=== PATIENT | female | born 1945 | race African-American/Black ===

== ENCOUNTER 2021-09-11 07:14 | Emergency (ER) | payer MEDICARE, OTHER ==
[~2021-09-11] VITALS: Ht 170.2 cm; Wt 48.0 kg
[2021-09-11 07:38] VITALS: BP 182/90
[2021-09-11] MEDS ORDERED: KETOROLAC 60MG/2ML VIAL IM ONE (08:30)
[2021-09-11] MEDS ORDERED: MORPHINE SULFATE 10 MG/ML CPJ IM ONE (08:30)
[2021-09-11] MEDS ORDERED: ONDANSETRON 4MG ODT PO ONE (08:30)
[2021-09-11] MEDS ORDERED: IBUP-2028 MT (10:38)
[2021-09-11] MEDS ORDERED: HYDR-4001 MT (10:38)
== END 2021-09-11 12:45 | disposition home or self-care (01) ==
LOC: ER 07:14
DX: S82.852A Displaced trimalleolar fracture of left lower leg, initial encounter for closed fracture (principal); I10 Essential (primary) hypertension; V49.9XXA Car occupant (driver) (passenger) injured in unspecified traffic accident, initial encounter; Y93.89 Activity, other specified; Y92.89 Other specified places as the place of occurrence of the external cause; Y99.8 Other external cause status
CPT/HCPCS: 29515; 70450; 72125; 73610; 96372; 99284; J1885; Q0162